=== PATIENT | male | born 1985 | race Two or more races ===

== ENCOUNTER 2020-06-08 01:44 | Emergency (ER) | payer MEDICAID ==
[~2020-06-08] VITALS: Ht 157.5 cm; Wt 68.0 kg
[2020-06-08] MEDS ORDERED: ALBU6.7H9 INH (03:24)
[2020-06-08] MEDS ORDERED: TRAMADOL 50MG TABLET PO ONE (03:30)
[2020-06-08] MEDS ORDERED: ACETAMINOPHEN 325MG TABLET PO ONE (03:30)
[2020-06-08 03:35] VITALS: BP 149/86
== END 2020-06-08 03:53 | disposition home or self-care (01) ==
LOC: ER 01:44
DX: J45.901 Unspecified asthma with (acute) exacerbation (principal); I12.0 Hypertensive chronic kidney disease with stage 5 chronic kidney disease or end stage renal disease; N18.6 End stage renal disease; Z99.2 Dependence on renal dialysis
CPT/HCPCS: 99283